=== PATIENT | female | born 1965 | race Caucasian/White ===

== ENCOUNTER 2024-12-11 08:22 | Inpatient (IN) | payer MEDICARE ==
--- NOTE | 2024-12-11 09:16 | ED ---
General Adult HPI - General Chief complaint: Chest Pain Stated complaint: nausea,chest pressure,headache Time Seen by Provider: 12/11/24 08:35 Source: patient, RN notes reviewed, old records reviewed Mode of arrival: ambulatory Limitations: no limitations - History of Present Illness Initial comments: This is a 59-year-old female who has a past medical history significant for high blood pressure mildly high cholesterol. Patient states a couple weeks ago she went to [place] and it was a 6-hour drive each way. Patient states ever since then she has had some chest discomfort that seems to worsen with exertion and difficulty breathing which seems to worsen with exertion. Patient states she is also noted increased swelling in her feet. Patient denies any fever chills or cough. Patient denies any calf pain. Patient states both legs are equally swollen. Patient denies any radiation of the chest pain - Related Data Allergies Allergy/AdvReac Type Severity Reaction Status Date / Time cefaclor [From Ceclor] Allergy Rash/Hives Verified 12/11/24 08:30 Review of Systems ROS Statement: Those systems with pertinent positive or pertinent negative responses have been documented in the HPI. ROS Other: All systems not noted in ROS Statement are negative. Past Medical History Past Medical History: Hypertension Additional Past Medical History / Comment(s): anxiety, depression History of Any Multi-Drug Resistant Organisms: None Reported Past Surgical History: Cholecystectomy Smoking Status: Never smoker Past Alcohol Use History: None Reported Past Drug Use History: None Reported General Exam - General Exam Comments Initial Comments: GENERAL: Patient is well-developed and well-nourished. Patient is nontoxic and well- hydrated and is in no acute distress. ENT: Neck is soft and supple. No significant lymphadenopathy is noted. Oropharynx is clear. Moist mucous membranes. Neck has full range of motion without eliciting any pain. EYES: The sclera were anicteric and conjunctiva were pink and moist. Extraocular movements were intact and pupils were equal round and reactive to light. Eyelids were unremarkable. PULMONARY: Unlabored respirations. Good breath sounds bilaterally. No audible rales rhonchi or wheezing was noted. CARDIOVASCULAR: There is a regular rate and rhythm without any murmurs gallops or rubs. ABDOMEN: Soft and nontender with normal bowel sounds. SKIN: Skin is clear with no lesions or rashes and otherwise unremarkable. NEUROLOGIC: Patient is alert and oriented x3. Cranial nerves II through XII are grossly intact. Motor and sensory are also intact. Normal speech, volume and content. Symmetrical smile. MUSCULOSKELETAL: Normal extremities with adequate strength and full range of motion. No lower extremity swelling or edema. No calf tenderness. LYMPHATICS: No significant lymphadenopathy is noted PSYCHIATRIC: Normal psychiatric evaluation. 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 EKG shows a sinus rhythm at 68 bpm MN interval is 155 QRS is 88 QT interval is 4 9 QTc is 427. EKG shows no ST segment elevation or depression Was pt. sent in by a medical professional or institution (, PA, EPIC INTERFACE ANALYST, urgent care, hospital, or group home...) When possible be specific @ -No Did you speak to anyone other than the patient for history (EMS, parent, family, police, friend...)? What history was obtained from this source @ -No Did you review nursing and triage notes (agree or disagree)? Why? @ -I reviewed and agree with nursing and triage notes Were old charts reviewed (outside hosp., previous admission, EMS record, old EKG, old radiological studies, urgent care reports/EKG's, group home records)? Report findings @ -No old charts were reviewed Differential Diagnosis? @ -Differential Chest Pain: Stable Angina, Unstable Angina, STEMI, NSTEMI Aortic Dissection, Pneumothorax, Musculoskeletal, Esophageal Spasm GERD, Cholecystitis, Pancreatitis, Zoster, this is not meant to be an all-inclusive list. EKG interpreted by me (3pts min.). @ -As above X-rays interpreted by me (1pt min.). @ -Chest x-ray shows no acute abnormality CT interpreted by me (1pt min.). @ -None done U/S interpreted by me (1pt. min.). @ -None done What testing was considered but not performed or refused? (CT, X-rays, U/S, labs)? Why? @ -None What meds were considered but not given or refused? Why? @ -None Did you discuss the management of the patient with other professionals (professionals i.e. , PA, EPIC INTERFACE ANALYST, lab, RT, psych nurse, social science instructor, java spring developer, teacher, second officer, casey saw operator)? Give summary @ -I spoke with [facility] hospitalist and they agreed to admit the patient admit the patient was admitting orders Was smoking cessation discussed for >3mins.? @ -No Was critical care preformed (if so, how long)? @ -No Were there social determinants of health that impacted care today? How? (Homelessness, low income, unemployed, alcoholism, drug addiction, transportation, low edu. Level, literacy, decrease access to med. care, senior living, rehab)? @ -No Was there de-escalation of care discussed even if they declined (Discuss DNR or withdrawal of care, Hospice)? DNR status @ -No What co-morbidities impacted this encounter? (DM, HTN, Smoking, COPD, CAD, Cancer, CVA, ARF, Chemo, Hep., AIDS, mental health diagnosis, sleep apnea, morbid obesity)? @ -None Was patient admitted / discharged? Hospital course, mention meds given and route, prescriptions, significant lab abnormalities, going to OR and other pertinent info. @ -Patient's chest pain was still ongoing but very mild patient received aspirin Nitropaste in the emergency department. [facility]. Patient's initial troponin was negative as well as the rest of her lab work Undiagnosed new problem with uncertain prognosis? @ -No Drug Therapy requiring intensive monitoring for toxicity (Heparin, Nitro, Insulin, Cardizem)? @ -No Were any procedures done? @ -No Diagnosis/symptom? @ -Chest pain Acute, or Chronic, or Acute on Chronic? @ -Acute Uncomplicated (without systemic symptoms) or Complicated (systemic symptoms)? @ -Complicated Side effects of treatment? @ -No Exacerbation, Progression, or Severe Exacerbation? @ -No Poses a threat to life or bodily function? How? (Chest pain, USA, IA, pneumonia, PE, COPD, DKA, ARF, appy, cholecystitis, CVA, Diverticulitis, Homicidal, Suicidal, threat to staff... and all critical care pts) @ -Yes this could lead to an IA and endorgan dysfunction - Lab Data Result diagrams: 12/11/24 09:30 12/11/24 09:30 Lab Results 12/11/24 12/11/24 12/11/24 Range/Units 09:30 09:30 09:30 WBC 10.3 (3.8-10.6) k/uL RBC 4.64 (3.80-5.40) m/uL Hgb 12.2 (11.4-16.0) gm/dL Hct 39.3 (34.0-46.0) % MCV 84.9 (80.0-100.0) fL MCH 26.3 (25.0-35.0) pg MCHC 31.0 (31.0-37.0) g/dL RDW 15.3 (11.5-15.5) % Plt Count 269 (150-450) k/uL MPV 8.7 Neutrophils % 72 % Lymphocytes % 19 % Monocytes % 5 % Eosinophils % 2 % Basophils % 1 % Neutrophils # 7.4 (1.3-7.7) k/uL Lymphocytes # 2.0 (1.0-4.8) k/uL Monocytes # 0.5 (0-1.0) k/uL Eosinophils # 0.2 (0-0.7) k/uL Basophils # 0.1 (0-0.2) k/uL PT 10.1 (10.0-12.5) sec INR 0.9 (<1.2) APTT 23.5 (22.0-30.0) sec D-Dimer (<0.60) mg/L FEU Sodium 137 (137-145) mmol/L Potassium 4.2 (3.5-5.1) mmol/L Chloride 103 (98-107) mmol/L Carbon Dioxide 27 (22-30) mmol/L Anion Gap 7 mmol/L BUN 11 (7-17) mg/dL Creatinine 0.70 (0.52-1.04) mg/dL Est GFR (CKD-EPI)AfAm >90 (>60 ml/min/1.73 sqM) Est GFR (CKD-EPI)NonAf >90 (>60 ml/min/1.73 sqM) Glucose 105 H (74-99) mg/dL Calcium 8.8 (8.4-10.2) mg/dL Magnesium 2.2 (1.6-2.3) mg/dL Total Bilirubin 0.5 (0.2-1.3) mg/dL AST 24 (14-36) U/L ALT 19 (4-34) U/L Alkaline Phosphatase 95 (38-126) U/L Troponin I (0.000-0.034) ng/mL Total Protein 7.5 (6.3-8.2) g/dL Albumin 4.4 (3.5-5.0) g/dL 12/11/24 12/11/24 Range/Units 09:30 09:30 WBC (3.8-10.6) k/uL RBC (3.80-5.40) m/uL Hgb (11.4-16.0) gm/dL Hct (34.0-46.0) % MCV (80.0-100.0) fL MCH (25.0-35.0) pg MCHC (31.0-37.0) g/dL RDW (11.5-15.5) % Plt Count (150-450) k/uL MPV Neutrophils % % Lymphocytes % % Monocytes % % Eosinophils % % Basophils % % Neutrophils # (1.3-7.7) k/uL Lymphocytes # (1.0-4.8) k/uL Monocytes # (0-1.0) k/uL Eosinophils # (0-0.7) k/uL Basophils # (0-0.2) k/uL PT (10.0-12.5) sec INR (<1.2) APTT (22.0-30.0) sec D-Dimer 0.36 (<0.60) mg/L FEU Sodium (137-145) mmol/L Potassium (3.5-5.1) mmol/L Chloride (98-107) mmol/L Carbon Dioxide (22-30) mmol/L Anion Gap mmol/L BUN (7-17) mg/dL Creatinine (0.52-1.04) mg/dL Est GFR (CKD-EPI)AfAm (>60 ml/min/1.73 sqM) Est GFR (CKD-EPI)NonAf (>60 ml/min/1.73 sqM) Glucose (74-99) mg/dL Calcium (8.4-10.2) mg/dL Magnesium (1.6-2.3) mg/dL Total Bilirubin (0.2-1.3) mg/dL AST (14-36) U/L ALT (4-34) U/L Alkaline Phosphatase (38-126) U/L Troponin I <0.012 (0.000-0.034) ng/mL Total Protein (6.3-8.2) g/dL Albumin (3.5-5.0) g/dL Disposition Clinical Impression: Chest pain Disposition: ADMITTED IP TO THIS HOSP Referrals: Vannesa Rocha DO [Primary Care Provider] - 1-2 days Time of Disposition: 11:51
[2024-12-11] MEDS: NITROGLYCERIN OINT 1 INCH/GM PACKET TOPICAL STA (09:31)
[2024-12-11] MEDS: ASPIRIN 81 MG PO STA (09:31)
[2024-12-11] MEDS: HEPARIN SOD,PORK IN 0.45% NACL 25,000 UNIT in 0.45% NACL 1 250ML.BAG IV SCH (09:40)
[2024-12-11] MEDS: HEPARIN SODIUM 1,000 UN/ML (10ML VL) IV ONE (09:40)
--- NOTE | 2024-12-11 09:51 | XR ---
EXAMINATION TYPE: XR chest 2V DATE OF EXAM: 12/11/2024 9:47 AM COMPARISON: None TECHNIQUE: XR chest 2V Frontal and lateral views of the chest. CLINICAL INDICATION:Female, 59 years old with history of Chest Pain; FINDINGS: Lungs/Pleura: There is no evidence of pleural effusion, focal consolidation, or pneumothorax. Pulmonary vascularity: Unremarkable. Heart/mediastinum: Cardiomediastinal silhouette is unremarkable. Musculoskeletal: No acute osseous pathology. IMPRESSION: No acute cardiopulmonary disease/process. [facility], , 12/11/2024 9:49 AM
[2024-12-11 09:59] LABS: INR 0.9 (<1.2); Partial Thromboplastin Time 23.5 sec (22.0-30.0); Prothrombin Time 10.1 sec (10.0-12.5)
[2024-12-11 10:01] LABS: ALT 19 U/L (4-34); AST 24 U/L (14-36); African American GFR (CKD) >90 (>60 ml/min/1.73 sqM); Albumin 4.4 g/dL (3.5-5.0); Alkaline Phosphatase 95 U/L (38-126); Anion Gap 7 mmol/L; Blood Urea Nitrogen 11 mg/dL (7-17); Calcium 8.8 mg/dL (8.4-10.2); Carbon Dioxide 27 mmol/L (22-30); Chloride 103 mmol/L (98-107); Glucose 105 mg/dL (74-99); Magnesium 2.2 mg/dL (1.6-2.3); Non-African American GFR(CKD) >90 (>60 ml/min/1.73 sqM); Potassium 4.2 mmol/L (3.5-5.1); Sodium 137 mmol/L (137-145); Total Bilirubin 0.5 mg/dL (0.2-1.3); Total Protein 7.5 g/dL (6.3-8.2)
[2024-12-11 10:37] LABS: Basophils # (A) 0.1 k/uL (0-0.2); Basophils % (A) 1 %; Eosinophils # (A) 0.2 k/uL (0-0.7); Eosinophils % (A) 2 %; HCT 39.3 % (34.0-46.0); HGB 12.2 gm/dL (11.4-16.0); Lymphocytes % (A) 19 %; MCH 26.3 pg (25.0-35.0); MCV 84.9 fL (80.0-100.0); Mean Platelet Volume 8.7; Monocytes # (A) 0.5 k/uL (0-1.0); Monocytes % (A) 5 %; Neutrophils # (A) 7.4 k/uL (1.3-7.7); Neutrophils % (A) 72 %; Platelet Count 269 k/uL (150-450); RBC 4.64 m/uL (3.80-5.40); RDW 15.3 % (11.5-15.5); WBC 10.3 k/uL (3.8-10.6)
[2024-12-11] MEDS ORDERED: NITROGLYCERIN SL TABS 0.4 MG TAB SUBLINGUAL PRN (11:51)
[2024-12-11] MEDS: NITROGLYCERIN OINT 1 INCH/GM PACKET TOPICAL SCH (12:19)
--- NOTE | 2024-12-11 16:32 | P.HPIM ---
History of Present Illness H&P Date: 12/11/24 History of present illness: 59-year-old female with no significant past medical history, reported history of depression anxiety who presented to ER with a complaint of chest discomfort for 1 week. Patient stated that she recently went to [place], it was a 6 to 7-hour drive each way, they took stop in between, since returning from [place] patient was having chest discomfort on and off and also shortness of breath worse with exertion. Patient stated that the pressure-like feeling was intermittent, was worse with exertion, improves with rest. Patient denied any fever, chills, sore throat, productive cough, lower extremity swelling, palpitations, nausea vomiting diarrhea constipation abdominal pain dysuria urgency frequency weakness or numbness of the extremities. Patient is afebrile, heart rate 76, respiratory rate 18, blood pressure 142/69, saturating 96% on room air. WBC 10.3, hemoglobin 12.2, platelet 269. INR 0.9 D-dimer 0.36. CMP was unremarkable. Troponin negative X2. Chest x-ray negative for acute process EKG showed sinus rhythm, no acute ST-T wave changes. TWI in V2. Assessment and plan: Chest pain: Presented with chest pressure for 1 week intermittent, improved with rest Troponin negative x 2's. Monitor with serial troponin EKG Aspirin Cardiology consult. As needed nitroglycerin. DVT prophylaxis Subcutaneous Lovenox Monitor vital signs and labs Labs and medication were reviewed. Continue same treatment. Further recommendations as per clinical course of the patient PHYSICAL EXAMINATION: GENERAL: The patient is A&O x3, NAD HEENT: EOMI, Sclerae anicteric, Moist Mucous membranes Neck: Supple, Non tender, No JVD PULMONARY: Equal breath souds B/L, No wheezing, No crackles. CARDIOVASCULAR: S1, S2 present. No murmurs, rubs, or gallops. ABDOMEN: Soft, nontender, nondistended, normoactive bowel sounds. No guarding or rebound tenderness. MUSCULOSKELETAL: No edema, No cyanosis. No clubbing. Normal ROM. Intact peripheral pulses. NEUROLOGICAL: CN 2-12 grossly intact. No FND REVIEW OF SYSTEMS: CONSTITUTIONAL: No fever, no malaise, no fatigue. HEENT: No recent visual problems or hearing problems. Denied any sore throat. CARDIOVASCULAR: Complains of chest discomfort, dizziness. PULMONARY: No shortness of breath, no cough, no hemoptysis. GASTROINTESTINAL: No diarrhea, no nausea, no vomiting, no abdominal pain. NEUROLOGICAL: No headaches, no weakness, no numbness. HEMATOLOGICAL: Denies any bleeding or petechiae. GENITOURINARY: Denies any burning micturition, frequency, or urgency. MUSCULOSKELETAL/RHEUMATOLOGICAL: Denies any joint pain, swelling, or any muscle pain. ENDOCRINE: Denies any polyuria or polydipsia. The rest of the 14-point review of systems is negative. Dictation was produced using [employer] software. please excuse any grammatical, word or spelling errors. Past Medical History Past Medical History: Hypertension Additional Past Medical History / Comment(s): anxiety, depression History of Any Multi-Drug Resistant Organisms: None Reported Past Surgical History: Cholecystectomy Smoking Status: Never smoker Past Alcohol Use History: None Reported Past Drug Use History: None Reported Medications and Allergies Home Medications Medication Instructions Recorded Confirmed Type Clonazepam Odt 0.5 mg PO TID PRN 12/11/24 12/11/24 History Metoprolol Succinate (ER) [Toprol 25 mg PO HS 12/11/24 12/11/24 History Xl] Sertraline [Zoloft] 150 mg PO HS 12/11/24 12/11/24 History clonazePAM [KlonoPIN ODT] 0.25 mg PO BID PRN 12/11/24 12/11/24 History Allergies Allergy/AdvReac Type Severity Reaction Status Date / Time cefaclor [From [facility]] Allergy Rash/Hives Verified 12/11/24 08:30 Physical Exam Vitals: Vital Signs Temp Pulse Pulse Resp BP Pulse Ox 12/11/24 10:55 71 18 136/66 98 12/11/24 09:17 65 65 18 158/76 97 12/11/24 08:25 98.0 F 76 18 142/69 96 Intake and Output 12/11/24 12/11/24 12/11/24 06:59 14:59 22:59 Other: # Voids 1 Weight 156.943 kg Results CBC & Chem 7: 12/11/24 09:30 12/11/24 09:30 Labs: Abnormal Lab Results - Last 24 Hours (Table) 12/11/24 Range/Units 09:30 Glucose 105 H (74-99) mg/dL
[2024-12-11] MEDS: ACETAMINOPHEN TAB 500 MG TAB PO PRN (17:20)
[2024-12-11] MEDS: ENOXAPARIN 40 MG/0.4 ML SYRINGE SQ SCH (17:50)
[2024-12-11] MEDS: SERTRALINE 50 MG TAB PO SCH (20:11)
[2024-12-11] MEDS: METOPROLOL SUCCINATE (ER) 25 MG TAB.ER.24H PO SCH (20:11)
[2024-12-11] MEDS: clonazePAM 0.5 MG TAB PO PRN (21:43)
[2024-12-12 09:55] LABS: Chol/HDL Ratio 3.61 Ratio; LDL Cholesterol,Calculated 141.2 mg/dL (0.0-131.0)
--- NOTE | 2024-12-12 12:49 | P.PN ---
Subjective Interval History: 59-year-old female with no significant past medical history, reported history of depression anxiety who presented to ER with a complaint of chest discomfort for 1 week. Patient stated that she recently went to [place], it was a 6 to 7-hour drive each way, they took stop in between, since returning from [place] patient was having chest discomfort on and off and also shortness of breath worse with exertion. Patient stated that the pressure-like feeling was intermittent, was worse with exertion, improves with rest. Patient denied any fever, chills, sore throat, productive cough, lower extremity swelling, palpitations, nausea vomiting diarrhea constipation abdominal pain dysuria urgency frequency weakness or numbness of the extremities. Patient is afebrile, heart rate 76, respiratory rate 18, blood pressure 142/69, saturating 96% on room air. WBC 10.3, hemoglobin 12.2, platelet 269. INR 0.9 D-dimer 0.36. CMP was unremarkable. Troponin negative X2. Chest x-ray negative for acute process EKG showed sinus rhythm, no acute ST-T wave changes. TWI in V2. 12/12--- patient was seen and examined today. Patient continued complain of chest pressure with exertion relieved with rest. Troponin remained negative. Will continue monitor, continue aspirin, statin, as needed sublingual nitroglycerin. Vital stable. Troponin remained negative x 3. LDL 141. HbA1c 6.0. Assessment and plan: Chest pain: Presented with chest pressure for 1 week intermittent, improved with rest Troponin negative x 2's. Monitor with serial troponin EKG Aspirin As needed nitroglycerin. Cardiology consulted Prediabetes: HbA1c 6.0 Recommend dietary modifications and exercise. PCP to follow. DVT prophylaxis Subcutaneous Lovenox Monitor vital signs and labs Labs and medication were reviewed. Continue same treatment. Further recommendations as per clinical course of the patient PHYSICAL EXAMINATION: GENERAL: The patient is A&O x3, NAD HEENT: EOMI, Sclerae anicteric, Moist Mucous membranes Neck: Supple, Non tender, No JVD PULMONARY: Equal breath souds B/L, No wheezing, No crackles. CARDIOVASCULAR: S1, S2 present. No murmurs, rubs, or gallops. ABDOMEN: Soft, nontender, nondistended, normoactive bowel sounds. No guarding or rebound tenderness. MUSCULOSKELETAL: No edema, No cyanosis. No clubbing. Normal ROM. Intact peripheral pulses. NEUROLOGICAL: CN 2-12 grossly intact. No FND Skin: No Rash REVIEW OF SYSTEMS: CONSTITUTIONAL: No fever or chills. CARDIOVASCULAR: No chest pain, palpitations or syncope. PULMONARY: No shortness of breath, no cough, sore throat. GASTROINTESTINAL: No nausea, vomiting, diarrhea, abdominal pain. : No Dysuria, urgency, frequency. Extremities: No edema. NEUROLOGICAL: No headaches, no weakness, or numbness Dictation was produced using [employer] dictation software. please excuse any grammatical, word or spelling errors. Objective - Vital Signs Vital signs: Vital Signs Temp 98.3 F 12/12/24 07:00 Pulse 76 12/12/24 07:00 Resp 16 12/12/24 07:00 BP 151/77 12/12/24 07:00 Pulse Ox 96 12/12/24 07:00 FiO2 Intake & Output 12/11/24 12/12/24 12/12/24 18:59 06:59 18:59 Intake Total 222 Balance 222 Weight 156.943 kg Intake: Oral 222 Other: Voiding Method Toilet Toilet # Voids 1 4 # Bowel Movements 1 - Labs CBC & Chem 7: 12/11/24 09:30 12/11/24 09:30 Labs: Abnormal Lab Results - Last 24 Hours (Table) 12/11/24 Range/Units 09:30 Cholesterol 226.00 H (0.00-200.00) mg/dL LDL Cholesterol, Calc 141.2 H (0.0-131.0) mg/dL HDL Cholesterol 62.60 H (40.00-60.00) mg/dL
[2024-12-12] MEDS: ASPIRIN 325 MG TAB PO SCH (14:30)
[2024-12-12] MEDS ORDERED: NITROGLYCERIN SL TABS 0.4 MG TAB SUBLINGUAL PRN (16:39)
[2024-12-12] MEDS ORDERED: ALPRAZolam 0.5 MG TAB PO PRN (16:39)
--- NOTE | 2024-12-12 16:43 | P.CRDCN ---
History of Present Illness Consult date: 12/12/24 Consult reason: chest pain Chief complaint: Chest pain History of present illness: History of present illness: Patient is a pleasant 59-year-old female with significant past medical history of hypertension, hyperlipidemia, depression/anxiety, obesity who presented to the emergency department with complaints of chest pain. 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 She has recently moved to the area. She had been tra veling in [place] November 22 and has not been feeling well since then. She has been having chest tightness and feet swelling. She will feel chest pressure that is worse with movement and then improves with rest. She is having more shortness of breath with exertion and dizziness. Denies any syncope. Yesterday she woke up with heavy pressure on her chest and felt nauseous. Her blood press ure was elevated 180/95. She does report family history of father having [place] in his 70s and mother having [place] in her 80s. Labs reviewed: Troponin negative x 3, D-dimer normal. EKG shows sinus rhythm with Q waves. Chest x-ray with no acute findings. She is not a smoker. She did have a prior CTA coronary arteries 11/2022 which showed LAD 50-70% stenosis and RCA 25% stenosis. She was advised to start a statin for cholesterol management however she does not want to take any statins and is open to other alternative medications. She also saw a new PCP recently and was given a prescription for lisinopril 5 mg but has not started this yet. Lipid panel reviewed: Total cholesterol 226, LDL 141, HDL 62, A1c 6.0. REVIEW OF SYSTEMS: No fever or chills. No cough or expectoration. No diaphoresis. Patient denies headache, dizziness, blurred vision, double vision. Patient denies any stomach discomfort. No nausea, vomiting. No hematochezia. No hematemesis. Denies any black stools or blood in his stools. Denies dysuria or hematuria. No muscle weakness or numbness. Reports chest pain or pressure. PHYSICAL EXAMINATION: This is a 59-year-old female in no apparent distress at the time of my examination. HEENT: Head is atraumatic, normocephalic. Pupils are equal, round. Sclerae anicteric. Conjunctivae are clear. Mucous membranes of the mouth are moist. Neck is supple. There is no jugular venous distention. No carotid bruit is heard. CHEST EXAMINATION: Lungs are clear to auscultation. No chest wall tenderness is noted on palpation or with deep breathing. HEART EXAMINATION: Heart regular rate and rhythm. S1, S2 heard. No murmurs, gallops or rub. ABDOMEN: Soft, nontender. Bowel sounds are heard. EXTREMITIES: 2+ peripheral pulses with no evidence of peripheral edema and no calf tenderness noted. NEUROLOGIC EXAMINATION: Patient is awake, alert and oriented x3. IMPRESSION AND PLAN: Hypertension Chest pain, typical Hyperlipidemia Moderate CAD as noted on CTA coronary arteries 11/2022 PLAN: Check echocardiogram to evaluate heart function and structure. We discussed option for stress test versus left heart catheterization. Patient would like to proceed with left heart catheterization for definitive answer and possible intervention. We discussed that she would likely need cholesterol management and ideally attempt a statin, she will think about this. NPO after light breakfast tomorrow. Continue to monitor blood pressure. Further recommendations post testing. I am dictating on behalf of Dr. Davonte Ott's history/physical and assessment/plan. Past Medical History Past Medical History: Osteoarthritis (OA) Additional Past Medical History / Comment(s): anxiety, depression, gel shots in knee (OA) History of Any Multi-Drug Resistant Organisms: None Reported Past Surgical History: Cholecystectomy Smoking Status: Never smoker Past Alcohol Use History: None Reported Past Drug Use History: None Reported Medications and Allergies Home Medications Medication Instructions Recorded Confirmed Type Clonazepam Odt 0.5 mg PO TID PRN 12/11/24 12/11/24 History Metoprolol Succinate (ER) [Toprol 25 mg PO HS 12/11/24 12/11/24 History Xl] Sertraline [Zoloft] 150 mg PO HS 12/11/24 12/11/24 History clonazePAM [KlonoPIN ODT] 0.25 mg PO BID PRN 12/11/24 12/11/24 History Allergies Allergy/AdvReac Type Severity Reaction Status Date / Time cefaclor [From [facility]] Allergy Rash/Hives Verified 12/11/24 08:30 Physical Exam Vitals: Vital Signs Temp Pulse Pulse Pulse Resp BP BP 12/12/24 07:00 98.3 F 76 16 151/77 12/12/24 01:53 98 F 67 20 144/71 12/11/24 18:45 98.1 F 67 18 138/74 12/11/24 17:05 98.0 F 71 16 158/78 12/11/24 10:55 71 18 136/66 Pulse Ox 12/12/24 07:00 96 12/12/24 01:53 96 12/11/24 18:45 97 12/11/24 17:05 98 12/11/24 10:55 98 Intake and Output 12/11/24 12/12/24 12/12/24 22:59 06:59 14:59 Intake Total 222 Balance 222 Intake: Oral 222 Other: Voiding Method Toilet Toilet Toilet # Voids 1 4 # Bowel Movements 1 Weight 156.943 kg Results 12/11/24 09:30 12/11/24 09:30 Cardiac Enzymes 12/11/24 12/11/24 12/11/24 Range/Units 09:30 09:30 12:09 AST 24 (14-36) U/L Troponin I <0.012 <0.012 (0.000-0.034) ng/mL 12/11/24 Range/Units 15:58 AST (14-36) U/L Troponin I <0.012 (0.000-0.034) ng/mL Coagulation 12/11/24 Range/Units 09:30 PT 10.1 (10.0-12.5) sec APTT 23.5 (22.0-30.0) sec CBC 12/11/24 Range/Units 09:30 WBC 10.3 (3.8-10.6) k/uL RBC 4.64 (3.80-5.40) m/uL Hgb 12.2 (11.4-16.0) gm/dL Hct 39.3 (34.0-46.0) % Plt Count 269 (150-450) k/uL Comprehensive Metabolic Panel 12/11/24 Range/Units 09:30 Sodium 137 (137-145) mmol/L Potassium 4.2 (3.5-5.1) mmol/L Chloride 103 (98-107) mmol/L Carbon Dioxide 27 (22-30) mmol/L BUN 11 (7-17) mg/dL Creatinine 0.70 (0.52-1.04) mg/dL Glucose 105 H (74-99) mg/dL Calcium 8.8 (8.4-10.2) mg/dL AST 24 (14-36) U/L ALT 19 (4-34) U/L Alkaline Phosphatase 95 (38-126) U/L Total Protein 7.5 (6.3-8.2) g/dL Albumin 4.4 (3.5-5.0) g/dL Current Medications Generic Name Dose Route Start Last Admin Trade Name Freq PRN Reason Stop Dose Admin Acetaminophen 500 mg 12/11/24 16:55 12/11/24 17:20 Acetaminophen Tab 500 Mg Tab PO 500 mg Q6HR PRN Administration Fever and/ or Pain Aspirin 325 mg 12/12/24 09:00 Aspirin 325 Mg Tab PO DAILY [facility]RETT Clonazepam 0.5 mg 12/11/24 17:52 12/11/24 21:43 Clonazepam 0.5 Mg Tab PO 0.5 mg TID PRN Administration Anxiety Enoxaparin Sodium 40 mg 12/11/24 16:45 12/12/24 09:03 Enoxaparin 40 Mg/0.4 Ml Syringe SQ Not Given DAILY [facility] Metoprolol Succinate 25 mg 12/11/24 21:00 12/11/24 20:11 Metoprolol Succinate (Er) 25 Mg Tab.Er.24h PO 25 mg HS BARRETT Administration Nitroglycerin 0.4 mg 12/11/24 11:51 Nitroglycerin Sl Tabs 0.4 Mg Tab SUBLINGUAL Q5M PRN Chest Pain Nitroglycerin 1 inch 12/11/24 13:00 12/12/24 05:08 Nitroglycerin Oint 1 Inch/Gm Packet TOPICAL Not Given Q6HR BARRETT Sertraline HCl 150 mg 12/11/24 21:00 12/11/24 20:11 Sertraline 50 Mg Tab PO 150 mg HS BARRETT Administration Intake and Output 12/11/24 12/12/24 12/12/24 22:59 06:59 14:59 Intake Total 222 Balance 222 Intake: Oral 222 Other: Voiding Method Toilet Toilet Toilet # Voids 1 4 # Bowel Movements 1 Weight 156.943 kg 12/11/24 09:30 12/11/24 09:30
[2024-12-13] MEDS: ALPRAZolam 0.25 MG TAB PO PRN (02:56)
[2024-12-13] MEDS: ATORVASTATIN 80 MG TAB PO ONE (06:05)
[2024-12-13] MEDS ORDERED: HEPARIN SODIUM,PORCINE (1 ML) 2,500 UNIT in SODIUM CHLORIDE 0.9% 250 ML IRRIGATION PRN (07:00)
[2024-12-13] MEDS ORDERED: HEPARIN SODIUM,PORCINE 10,000 UNIT in SODIUM CHLORIDE 0.9% 1,000 ML IRRIGATION PRN (07:00)
--- NOTE | 2024-12-13 10:04 | CA ---
Transthoracic Echo Report Name: Jaz Murphy Age: 59 Gender: F : 1965 Exam Date: 12/13/2024 09:08 Exam Location: [facility] Ht (in): 62 Wt (lb): 346 Ordering Physician: Regina Houston Attending/Referring Phys: Excavation Laborer Jessy Galo RDCS Procedure CPT: Indications: Chest Pain Cardiac Hx: Technical Quality: Fair Contrast 1: Total Dose (mL): Contrast 2: Total Dose (mL): MEASUREMENTS (Male / Female) Normal Values 2D ECHO LV Diastolic Diameter PLAX 4.9 cm 4.2 - 5.9 / 3.9 - 5.3 cm LV Systolic Diameter PLAX 3.4 cm IVS Diastolic Thickness 1.2 cm 0.6 - 1.0 / 0.6 - 0.9 cm LVPW Diastolic Thickness 1.2 cm 0.6 - 1.0 / 0.6 - 0.9 cm LV Relative Wall Thickness 0.5 RV Internal Dim ED PLAX 2.2 cm LA Systolic Diameter LX 3.9 cm 3.0 - 4.0 / 2.7 - 3.8 cm LV Diastolic Volume MOD BP 86.5 cm??? 67 - 155 / 56 - 104 cm??? LV Systolic Volume MOD BP 32.2 cm??? 22 - 58 / 19 - 49 cm??? LV Ejection Fraction MOD BP 62.8 % >= 55 % LV Cardiac Index MOD BP 1448.8 cm???/min???m??? LV Diastolic Volume MOD 4C 97.3 cm??? LV Systolic Volume MOD 4C 28.5 cm??? LV Ejection Fraction MOD 4C 70.7 % LV Cardiac Index MOD 4C 1837.6 cm???/min???m??? LV Diastolic Length 4C 7.0 cm LV Systolic Length 4C 5.5 cm LV Diastolic Volume MOD 2C 75.6 cm??? LV Systolic Volume MOD 2C 34.5 cm??? LV Ejection Fraction MOD 2C 54.3 % LV Cardiac Index MOD 2C 1095.5 cm???/min???m??? LV Diastolic Length 2C 6.8 cm LV Systolic Length 2C 5.9 cm M-MODE Aortic Root Diameter MM 3.3 cm LA Systolic Diameter MM 4.3 cm LA Ao Ratio MM 1.3 AV Cusp Separation MM 2.0 cm DOPPLER Mitral E Point Velocity 124.9 cm/s Mitral A Point Velocity 101.4 cm/s Mitral E to A Ratio 1.2 MV Deceleration Time 219.8 ms MV E' Velocity 7.1 cm/s Mitral E to MV E' Ratio 17.5 TR Peak Velocity 256.3 cm/s TR Peak Gradient 26.3 mmHg Right Ventricular Systolic Press 31.3 mmHg FINDINGS Left Ventricle Left ventricular ejection fraction is estimated at 55-60 %.Normal left ventricular systolic function with no obvious regional wall motion abnormalities. Left ventricular cavity size normal. Mildly increased left ventricular wall thickness. Right Ventricle Normal right ventricular size and function. Right ventricular systolic pressure within normal limits. Right Atrium Mild right atrial dilatation. Left Atrium Moderate left atrial dilatation. Mitral Valve Structurally normal mitral valve. Mild mitral regurgitation. No mitral stenosis. Aortic Valve Trileaflet aortic valve. No aortic valve stenosis or regurgitation. Tricuspid Valve Structurally normal tricuspid valve. Mild tricuspid regurgitation. No tricuspid stenosis. Pulmonic Valve Structurally normal pulmonic valve. No pulmonic stenosis. Pericardium No pericardial or pleural effusion. Aorta Normal size aortic root and proximal ascending aorta. CONCLUSIONS 1. Normal left ventricular size and systolic function 2. Mild mitral and tricuspid regurgitation Previewed by: Dr. Naldo Saini MD (Electronically Signed) Final Date: 13 December 2024 10:03
--- NOTE | 2024-12-13 10:12 | P.PN ---
Subjective Progress Note Date: 12/13/24 Consult reason: chest pain Chief complaint: Chest pain History of present illness: History of present illness: Patient is a pleasant 59-year-old female with significant past medical history of hypertension, hyperlipidemia, depression/anxiety, obesity who presented to the emergency department with complaints of chest pain. 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 She has recently moved to the area. She had been traveling in [place] November 22- and has not been feeling well since then. She has been having chest tightness and feet swelling. She will feel chest pressure that is worse with movement and then improves with rest. She is having more shortness of breath with exertion and dizziness. Denies any syncope. Yesterday she woke up with heavy pressure on her chest and felt nauseous. Her blood pressure was elevated 180/95. She does report family history of father having [place] in his 70s and mother having [place] in her 80s. Labs reviewed: Troponin negative x 3, D-dimer normal. EKG shows sinus rhythm with Q waves. Chest x-ray with no acute findings. She is not a smoker. She did have a prior CTA coronary arteries 11/2022 which showed LAD 50-70% stenosis and RCA 25% stenosis. She was advised to start a statin for cholesterol management however she does not want to take any statins and is open to other alternative medications. She also saw a new PCP recently and was given a prescription for lisinopril 5 mg but has not started this yet. Lipid panel reviewed: Total cholesterol 226, LDL 141, HDL 62, A1c 6.0. 12/13 Patient seen and examined. Patient is scheduled for cardiac catheterization this afternoon with Dr. Ott. Patient denies having chest pain, chest pressure. No shortness of breath. Blood pressure 142/81, heart rate 72, pulse ox 94% on room air. Echocardiogram reveals EF of 55 to 60%, mild mitral and tricuspid regurgitation. PHYSICAL EXAMINATION: This is a 59-year-old female in no apparent distress at the time of my examination. HEENT: Head is atraumatic, normocephalic. Pupils are equal, round. Sclerae anicteric. Conjunctivae are clear. Neck is supple. There is no jugular venous distention. No carotid bruit is heard. CHEST EXAMINATION: Lungs are clear to auscultation. No chest wall tenderness is noted on palpation or with deep breathing. HEART EXAMINATION: Heart regular rate and rhythm. S1, S2 heard. No murmurs, gallops or rub. ABDOMEN: Soft, nontender. Bowel sounds are heard. EXTREMITIES: 2+ peripheral pulses with no evidence of peripheral edema and no calf tenderness noted. NEUROLOGIC EXAMINATION: Patient is awake, alert and oriented x3. IMPRESSION AND PLAN: Hypertension Chest pain, typical Hyperlipidemia Moderate CAD as noted on CTA coronary arteries 11/2022 PLAN: Continue current cardiac medications Patient is scheduled for left heart catheterization today with Dr. Ott Need for statin for cholesterol management was discussed with the patient by Dr. Ott and patient will think about it. Further recommendations as patient progresses. Nurse practitioner note has been reviewed, I agree with documented findings and plan of care. Patient was seen and examined. Objective - Vital Signs Vital signs: Vital Signs Temp 97.9 F 12/13/24 01:17 Pulse 71 12/13/24 01:17 Resp 20 12/13/24 01:17 BP 133/72 12/13/24 01:17 Pulse Ox 96 12/13/24 01:17 FiO2 Intake & Output 12/12/24 12/13/24 12/13/24 18:59 06:59 18:59 Intake Total 118 222 Balance 118 222 Intake: Oral 118 222 Other: Voiding Method Toilet Toilet # Voids 4 3 # Bowel Movements 1 - Labs CBC & Chem 7: 12/11/24 09:30 12/11/24 09:30 Labs: Abnormal Lab Results - Last 24 Hours (Table) 12/11/24 Range/Units 09:30 Cholesterol 226.00 H (0.00-200.00) mg/dL LDL Cholesterol, Calc 141.2 H (0.0-131.0) mg/dL HDL Cholesterol 62.60 H (40.00-60.00) mg/dL
[2024-12-13 12:40] LABS: Glucose,Whole Blood 95 mg/dL (70-110)
--- NOTE | 2024-12-13 13:35 | P.PN ---
Subjective Interval History: 59-year-old female with no significant past medical history, reported history of depression anxiety who presented to ER with a complaint of chest discomfort for 1 week. Patient stated that she recently went to [place], it was a 6 to 7-hour drive each way, they took stop in between, since returning from [place] patient was having chest discomfort on and off and also shortness of breath worse with exertion. Patient stated that the pressure-like feeling was intermittent, was worse with exertion, improves with rest. Patient denied any fever, chills, sore throat, productive cough, lower extremity swelling, palpitations, nausea vomiting diarrhea constipation abdominal pain dysuria urgency frequency weakness or numbness of the extremities. Patient is afebrile, heart rate 76, respiratory rate 18, blood pressure 142/69, saturating 96% on room air. WBC 10.3, hemoglobin 12.2, platelet 269. INR 0.9 D-dimer 0.36. CMP was unremarkable. Troponin negative X2. Chest x-ray negative for acute process EKG showed sinus rhythm, no acute ST-T wave changes. TWI in V2. 12/12--- patient was seen and examined today. Patient continued complain of chest pressure with exertion relieved with rest. Troponin remained negative. Will continue monitor, continue aspirin, statin, as needed sublingual nitroglycerin. Vital stable. Troponin remained negative x 3. LDL 141. HbA1c 6.0. 12/13--patient was seen and examined today. Vital stable. Patient continues complain of chest pressure and shortness of breath with exertion. Cardiology following, plan for cardiac catheterization today. Assessment and plan: Chest pain: Presented with chest pressure for 1 week intermittent, improved with rest Troponin negative x 2's. Monitor with serial troponin EKG Aspirin As needed nitroglycerin. Cardiology consulted--plan for cardiac catheterization today Prediabetes: HbA1c 6.0 Recommend dietary modifications and exercise. PCP to follow. DVT prophylaxis Subcutaneous Lovenox Monitor vital signs and labs Labs and medication were reviewed. Continue same treatment. Further recommendations as per clinical course of the patient PHYSICAL EXAMINATION: GENERAL: The patient is A&O x3, NAD HEENT: EOMI, Sclerae anicteric, Moist Mucous membranes Neck: Supple, Non tender, No JVD PULMONARY: Equal breath souds B/L, No wheezing, No crackles. CARDIOVASCULAR: S1, S2 present. No murmurs, rubs, or gallops. ABDOMEN: Soft, nontender, nondistended, normoactive bowel sounds. No guarding or rebound tenderness. MUSCULOSKELETAL: No edema, No cyanosis. No clubbing. Normal ROM. Intact perip heral pulses. NEUROLOGICAL: CN 2-12 grossly intact. No FND Skin: No Rash REVIEW OF SYSTEMS: CONSTITUTIONAL: No fever or chills. CARDIOVASCULAR: No chest pain, palpitations or syncope. PULMONARY: No shortness of breath, no cough, sore throat. GASTROINTESTINAL: No nausea, vomiting, diarrhea, abdominal pain. : No Dysuria, urgency, frequency. Extremities: No edema. NEUROLOGICAL: No headaches, no weakness, or numbness Dictation was produced using [employer] dictation software. please excuse any grammatical, word or spelling errors. Objective - Vital Signs Vital signs: Vital Signs Temp 98.1 F 12/13/24 07:15 Pulse 72 12/13/24 07:15 Resp 16 12/13/24 07:15 BP 142/81 12/13/24 07:15 Pulse Ox 94 L 12/13/24 07:15 FiO2 Intake & Output 12/12/24 12/13/24 12/13/24 18:59 06:59 18:59 Intake Total 118 222 Balance 118 222 Intake: Oral 118 222 Other: Voiding Method Toilet Toilet # Voids 4 3 # Bowel Movements 1 - Labs CBC & Chem 7: 12/11/24 09:30 12/11/24 09:30
[2024-12-13] MEDS: MIDAZOLAM 2 MG/2 ML VIAL IVP ONE ×3 (14:16→14:22)
[2024-12-13] MEDS: fentaNYL (PF) 50 MCG/ML 2 ML AMP IVP ONE ×3 (14:16→14:22)
[2024-12-13] MEDS: HEPARIN SODIUM 1,000 UN/ML (10ML VL) IVP ONE (14:20)
[2024-12-13] MEDS: IV FLUID CONTINUATION 600 ML IV ONE (14:28)
[2024-12-13] MEDS: IOPAMIDOL-370 100ML BTL INJ ONE (14:30)
--- NOTE | 2024-12-13 14:43 | P.CARDCATH ---
Description of Procedure: PROCEDURES PERFORMED: Left heart catheterization, bilateral coronary angiography, ultrasound guided arterial access INDICATION: Chest pain concerning for unstable angina CONSENT:I have discussed the risks, benefits and alternative therapies for the above-mentioned procedure and for both sedation/analgesia as well as necessary blood product administration, if indicated, as they pertain to this patient. The patient has indicated understanding and acceptance of the risks and procedures discussed. PROCEDURE: After the risks, benefits and alternatives of the above mentioned procedure explained in detail with the patient, informed consent was obtained. Patient was taken to the catheterization lab and prepped and draped in usual fashion. Ultrasound guidance was used to assess for arterial access. 1% lidocaine was used to anesthetize the right radial artery. A 6-English sheath was placed in the right radial artery using modified Seldinger technique and ultrasound guidance. Left coronary angiography was performed with a 5-English JL 3.5 catheter and right coronary angiography was performed with a 5-English FR5 catheter in various views. A 5-English FR5 catheter was inserted into the left ventricle and pressure measurements were obtained. The right radial sheath was removed and a TR band was placed with hemostasis achieved. The patient tolerated the procedure well. Patient was transported back to the post catheterization holding area in stable condition. Conscious Sedation: Patient was monitored under the direct supervision of myself for conscious sedation using Versed and fentanyl for a total duration of 11 minutes HEMODYNAMICS: Aortic: 128/72 LV: 121/10, LVEDP 18 SELECTIVE CORONARY ARTERIOGRAPHY: LEFT MAIN: The left main is a large caliber vessel which bifurcates into the LAD and circumflex. There is no significant stenosis. LEFT ANTERIOR DESCENDING CORONARY ARTERY: LAD is a large caliber vessel which wraps around to the apex. There are mild 10 to 20% mid LAD stenosis and otherwise normal. LEFT CIRCUMFLEX CORONARY ARTERY: Left circumflex is a moderate caliber vessel without significant stenosis. RIGHT CORONARY ARTERY: The right coronary artery is a large caliber vessel which gives off a PDA and PLV branch and is the dominant vessel. There is no significant stenosis. FINAL IMPRESSION: 1. Relatively normal coronary arteries as described above other than a mid LAD 10-20% stenosis. 2. Mildly elevated left sided filling pressures PLAN: 1. Aggressive risk factor modification per most recent ACC/AHA guidelines. 2. Follow-up in the office in 1-2 weeks.
[2024-12-13] MEDS: ATORVASTATIN 40 MG TAB PO SCH (21:12)
[2024-12-13] MEDS: PSEUDOEPHEDRINE 30 MG TAB PO PRN (21:35)
[2024-12-14 03:03] VITALS: TEMP 98.4
[2024-12-14 08:43] LABS: Basophils # (A) 0.13 X 10*3/uL (0.00-0.10); Basophils % (A) 1.1 %; Eosinophils # (A) 0.24 X 10*3/uL (0.04-0.35); Eosinophils % (A) 2.1 %; HCT 36.3 % (37.2-46.3); HGB 11.4 g/dL (12.0-15.0); Lymphocytes # (A) 2.34 X 10*3/uL (0.90-5.00); Lymphocytes % (A) 20.5 %; MCH 26.8 pg (27.0-32.0); MCHC 31.4 g/dL (32.0-37.0); MCV 85.2 FL (80.0-97.0); Mean Platelet Volume 11.4 FL (9.5-12.2); Monocytes # (A) 0.86 X 10*3/uL (0.20-1.00); Monocytes % (A) 7.6 %; NRBC Per 100 WBC 0 X 10*3/uL (0.00-0.01); Neutrophils # (A) 7.75 X 10*3/uL (1.80-7.70); Neutrophils % (A) 68.1 %; Platelet Count 279 X 10*3/uL (140-440); RBC 4.26 X 10*6/uL (4.10-5.20); RDW 15.1 % (11.5-14.5); WBC 11.39 X 10*3/uL (4.50-10.00)
[2024-12-14 08:48] LABS: BUN/Creat Ratio 20.71 Ratio (12.00-20.00); Blood Urea Nitrogen 14.5 mg/dL (9.0-27.0); Chloride 102 mmol/L (96-109); Glucose 110 mg/dL (70-110); Potassium 4.3 mmol/L (3.5-5.5); Sodium 139 mmol/L (135-145)
[2024-12-14 08:49] LABS: Calcium 8.6 mg/dL (8.7-10.3); Carbon Dioxide 26.1 mmol/L (21.6-31.8)
[2024-12-14 09:26] VITALS: BP 155/79; PULSE 64; RESP 18
--- NOTE | 2024-12-14 10:09 | P.PN ---
Subjective Progress Note Date: 12/14/24 Consult reason: chest pain Chief complaint: Chest pain History of present illness: History of present illness: Patient is a pleasant 59-year-old female with significant past medical history of hypertension, hyperlipidemia, depression/anxiety, obesity who presented to the emergency department with complaints of chest pain. She does not follow with a copy manager. She has recently moved to the area. She had been traveling in [place] November 22- and has not been feeling well since then. She has been having chest tightness and feet swelling. She will feel chest pressure that is worse with movement and then improves with rest. She is having more shortness of breath with exertion and dizziness. Denies any syncope. Yesterday she woke up with heavy pressure on her chest and felt nauseous. Her blood pressure was elevated 180/95. She does report family history of father having OH in his 70s and mother having OH in her 80s. Labs reviewed: Troponin negative x 3, D-dimer normal. EKG shows sinus rhythm with Q waves. Chest x-ray with no acute findings. She is not a smoker. She did have a prior CTA coronary arteries 11/2022 which showed LAD 50-70% stenosis and RCA 25% stenosis. She was advised to start a statin for cholesterol management however she does not want to take any statins and is open to other alternative medications. She also saw a new PCP recently and was given a prescription for lisinopril 5 mg but has not started this yet. Lipid panel reviewed: Total cholesterol 226, LDL 141, HDL 62, A1c 6.0. 3 Patient seen and examined. Patient is scheduled for cardiac catheterization this afternoon with Dr. Ott. Patient denies having chest pain, chest pressure. No shortness of breath. Blood pressure 142/81, heart rate 72, pulse ox 94% on room air. Echocardiogram reveals EF of 55 to 60%, mild mitral and tricuspid regurgitation. 12/14 Patient seen and examined. Yesterday, patient underwent cardiac catheterization with Dr. Ott which revealed relatively normal coronary arteries with mid LAD 10 to 20% stenosis. Mildly elevated left-sided filling pressures. Plan for aggressive risk factor modification and follow-up in the office in 1 to 2 weeks. This morning, patient states that she has some shortness of breath when she moves and also some chest pressure. Wrist shows no sign of hematoma or active bleeding. Blood pressure 155/79, heart rate 64, pulse ox 93% on room air. Repeat blood work reveals hemoglobin 11.4, WBC 11.3, BUN 14 creatinine 0.7. PHYSICAL EXAMINATION: This is a 59-year-old female in no apparent distress at the time of my examination. HEENT: Head is atraumatic, normocephalic. Pupils are equal, round. Sclerae anicteric. Conjunctivae are clear. Neck is supple. There is no jugular venous distention. No carotid bruit is heard. CHEST EXAMINATION: Lungs are clear to auscultation. No chest wall tenderness is noted on palpation or with deep breathing. HEART EXAMINATION: Heart regular rate and rhythm. S1, S2 heard. No murmurs, gallops or rub. ABDOMEN: Soft, nontender. Bowel sounds are heard. EXTREMITIES: 2+ peripheral pulses with no evidence of peripheral edema and no calf tenderness noted. NEUROLOGIC EXAMINATION: Patient is awake, alert and oriented x3. IMPRESSION AND PLAN: Hypertension Chest pain, acute coronary syndrome ruled out with negative cardiac catheterization Hyperlipidemia Moderate CAD as noted on CTA coronary arteries 11/2022 PLAN: Continue current cardiac medications Need for statin for cholesterol management was discussed with the patient by Dr. Ott and patient will think about it. Patient is cleared for discharge from cardiology perspective. Follow-up with Dr. Ott in 1 to 2 weeks. Nurse practitioner note has been reviewed, I agree with documented findings and plan of care. Patient was seen and examined. Objective - Vital Signs Vital signs: Vital Signs Temp 98.4 F 12/14/24 00:18 Pulse 70 12/14/24 00:18 Resp 17 12/14/24 00:18 BP 143/71 12/14/24 00:18 Pulse Ox 97 12/14/24 00:18 FiO2 Intake & Output 12/13/24 12/14/24 12/14/24 18:59 06:59 18:59 Intake Total 100 Balance 100 Intake: IV 100 Other: Voiding Method Toilet # Voids 3 1 - Labs CBC & Chem 7: 12/14/24 05:25 12/14/24 05:25
--- NOTE | 2024-12-14 12:42 | CT ---
EXAMINATION TYPE: CT chest angio for PE CT DLP: 790.9 mGycm, Automated exposure control for dose reduction was used. DATE OF EXAM: 12/14/2024 12:26 PM COMPARISON: Chest radiograph from same day. CLINICAL INDICATION:Female, 59 years old with history of SOB, chest pain; SOB TECHNIQUE/CONTRAST: CTA scan of the thorax is performed with IV Contrast, patient injected with 68cc mL of Isovue 370, pu lmonary embolism protocol. MIP images are created and reviewed. FINDINGS: Pulmonary Artery: There is no evidence for a filling defect within the pulmonary vasculature to sugge st acute pulmonary embolism. The pulmonary artery is of normal size. Lungs/Pleura: No evidence of focal consolidation, pleural effusion or pneumothorax. No suspicious pul monary nodule or mass. Airway: Large airways are patent. Heart: Cardiomegaly is demonstrated.No pericardial effusion No significant coronary artery calcificat ions. Vasculature: No evidence of aortic aneurysm. Mediastinum: No gross evidence of adenopathy. Musculoskeletal: No acute osseous abnormalities. Right AC joint arthropathy. Mild multilevel degenera tive disc disease. Soft Tissues: Unremarkable. Lower neck: Macrocalcification within the right thyroid lobe.. Upper Abdomen: Diffuse low-attenuation to the liver parenchyma.. IMPRESSION: 1. No evidence of pulmonary embolism or acute thoracic process. 2. Cardiomegaly. 3. Hepatic steatosis. [facility], , 12/14/2024 12:39 PM
--- NOTE | 2024-12-14 13:48 | P.DS ---
Providers Date of admission: 12/13/24 15:48 Attending physician: Saniya Souza Consults: 12/11/24 11:51 Consult Physician Urgent Consulting Provider: [facility] Consult Reason/Comments: Chest pain Do you want consulting provider notified?: Yes [facility] Discharge diagnoses: Chest pain: Presented with chest pressure for 1 week intermittent, improved with rest EKG and troponin monitored serially, remained negative. Cardiology consulted-- status post cardiac catheterization 12/13 which showed relatively normal coronary arteries with mid LAD 10 to 20% stenosis, mildly elevated left-sided filling pressure. Cardiology recommended outpatient follow-up Continue aspirin, statin, beta-gerson, as needed sublingual nitroglycerin CT angio chest negative for PE or dissection or any acute process, showed cardiomegaly. Hyperlipidemia: Continue Lipitor Prediabetes: HbA1c 6.0 Recommend dietary modifications and exercise. PCP to follow. Interval History: 59-year-old female with no significant past medical history, reported history of depression anxiety who presented to ER with a complaint of chest discomfort for 1 week. Patient stated that she recently went to [place], it was a 6 to 7-hour drive each way, they took stop in between, since returning from [place] patient was having chest discomfort on and off and also shortness of breath worse with exertion. Patient stated that the pressure-like feeling was intermittent, was worse with exertion, improves with rest. Patient denied any fever, chills, sore throat, productive cough, lower extremity swelling, palpitations, nausea vomiting diarrhea constipation abdominal pain dysuria urgency frequency weakness or numbness of the extremities. Patient is afebrile, heart rate 76, respiratory rate 18, blood pressure 142/69, saturating 96% on room air. WBC 10.3, hemoglobin 12.2, platelet 269. INR 0.9 D-dimer 0.36. CMP was unremarkable. Troponin negative X2. Chest x-ray negative for acute process EKG showed sinus rhythm, no acute ST-T wave changes. TWI in V2. 12/12--- patient was seen and examined today. Patient continued complain of chest pressure with exertion relieved with rest. Troponin remained negative. Will continue monitor, continue aspirin, statin, as needed sublingual nitroglycerin. Vital stable. Troponin remained negative x 3. LDL 141. HbA1c 6.0. 12/13--patient was seen and examined today. Vital stable. Patient continues complain of chest pressure and shortness of breath with exertion. Cardiology following, plan for cardiac catheterization status post cardiac catheterization 12/13 which showed relatively normal coronary arteries with mid LAD 10 to 20% stenosis, mildly elevated left-sided filling pressure. 12/14--patient was seen and examined today. Symptoms were improving. Card catheterization yesterday showed relatively normal coronary arteries. Cardiology recommended aggressive risk factor modification and outpatient follow-up. Patient continued on aspirin, statin, beta-gerson, as needed sublingual nitroglycerin. CT angio chest was done which was negative for acute process, showed cardiomegaly. Please refer to med rec and assessment plan for further details Follow-up with PCP in 1 week Follow-up with cardiology outpatient. PHYSICAL EXAMINATION: GENERAL: The patient is A&O x3, NAD HEENT: EOMI, Sclerae anicteric, Moist Mucous membranes Neck: Supple, Non tender, No JVD PULMONARY: Equal breath souds B/L, No wheezing, No crackles. CARDIOVASCULAR: S1, S2 present. No murmurs, rubs, or gallops. ABDOMEN: Soft, nontender, nondistended, normoactive bowel sounds. No guarding or rebound tenderness. MUSCULOSKELETAL: No edema, No cyanosis. No clubbing. Normal ROM. Intact peripheral pulses. NEUROLOGICAL: CN 2-12 grossly intact. No FND Skin: No Rash Dictation was produced using [employer] dictation software. please excuse any grammatical, word or spelling errors. Patient Condition at Discharge: Fair Plan - Discharge Summary New Discharge Prescriptions: New Aspirin EC [Ecotrin Low Dose] 81 mg PO DAILY #30 tab Atorvastatin [Lipitor] 40 mg PO HS #30 tab Nitroglycerin Sl Tabs [Nitrostat] 0.4 mg SUBLINGUAL Q5M PRN #14 tab PRN Reason: Chest Pain Continue Sertraline [Zoloft] 150 mg PO HS Clonazepam Odt 0.5 mg PO TID PRN PRN Reason: Anxiety clonazePAM [KlonoPIN ODT] 0.25 mg PO BID PRN PRN Reason: Anxiety Metoprolol Succinate (ER) [Toprol XL] 25 mg PO HS Discharge Medication List Clonazepam Odt 0.5 mg PO TID PRN 12/11/24 [History] Metoprolol Succinate (ER) [Toprol XL] 25 mg PO HS 12/11/24 [History] Sertraline [Zoloft] 150 mg PO HS 12/11/24 [History] clonazePAM [KlonoPIN ODT] 0.25 mg PO BID PRN 12/11/24 [History] Aspirin EC [Ecotrin Low Dose] 81 mg PO DAILY #30 tab 12/14/24 [Rx] Atorvastatin [Lipitor] 40 mg PO HS #30 tab 12/14/24 [Rx] Nitroglycerin Sl Tabs [Nitrostat] 0.4 mg SUBLINGUAL Q5M PRN #14 tab 12/14/24 [Rx] Follow up Appointment(s)/Referral(s): Davonte Ott DO [STAFF PHYSICIAN] - 1 Week Vannesa Rocha DO [Primary Care Provider] - 1-2 days Discharge Disposition: HOME SELF-CARE
== END 2024-12-14 15:45 | disposition home or self-care (01) | DRG 287 ==
LOC: EC 08:22 → 6NMEDSUR 11:52 → OBSVTOIN 12-13 15:48
PROVIDERS: ADMIT Hospitalist; ATTEND Hospitalist
PROC: 4A023N7 Measurement of Cardiac Sampling and Pressure, Left Heart, Percutaneous Approach (ICD-10-PCS; principal; 2024-12-13 07:30)
PROC: B2111ZZ Fluoroscopy of Multiple Coronary Arteries using Low Osmolar Contrast (ICD-10-PCS; principal; 2024-12-13 07:30)
DX: R07.9 Chest pain, unspecified (principal); Z68.44 Body mass index [BMI] 60.0-69.9, adult; I10 Essential (primary) hypertension; F32.A Depression, unspecified; I25.10 Atherosclerotic heart disease of native coronary artery without angina pectoris; E66.9 Obesity, unspecified; E78.00 Pure hypercholesterolemia, unspecified; F41.9 Anxiety disorder, unspecified; M17.10 Unilateral primary osteoarthritis, unspecified knee; R73.03 Prediabetes; Z79.899 Other long term (current) drug therapy; Z88.1 Allergy status to other antibiotic agents
CPT/HCPCS: 36415; 71046; 71275; 80048; 80053; 80061; 83036; 83735; 84484; 85025; 85379; 85610; 85730; 93005; 93306; 93458; 94760; 96361; 96365; 96366; 99285

== ENCOUNTER 2025-01-14 15:52 | Emergency (ER) | payer MEDICARE ==
[2025-01-14 16:04] VITALS: PULSE 86; RESP 18; TEMP 98.2
--- NOTE | 2025-01-14 16:34 | ED ---
Arrhythmia/Palpitations HPI - General Chief Complaint: Arrhythmia/Palpitations Stated Complaint: allergic reaction Time Seen by Provider: 01/14/25 16:07 Source: patient, RN notes reviewed Mode of arrival: wheelchair - History of Present Illness MD Complaint: palpitations Onset/Timin -: hour(s) Associated Symptoms: chest pain, near-syncope - Related Data Home Medications Medication Instructions Recorded Confirmed Clonazepam Odt 0.5 mg PO TID PRN 12/11/24 12/11/24 Metoprolol Succinate (ER) [Toprol 25 mg PO HS 12/11/24 12/11/24 XL] Sertraline [Zoloft] 150 mg PO HS 12/11/24 12/11/24 clonazePAM [KlonoPIN ODT] 0.25 mg PO BID PRN 12/11/24 12/11/24 Previous Rx's Medication Instructions Recorded Aspirin EC [Ecotrin Low Dose] 81 mg PO DAILY #30 tab 12/14/24 Atorvastatin [Lipitor] 40 mg PO HS #30 tab 12/14/24 Nitroglycerin Sl Tabs [Nitrostat] 0.4 mg SUBLINGUAL Q5M PRN #14 tab 12/14/24 Allergies Allergy/AdvReac Type Severity Reaction Status Date / Time cefaclor [From Ceclor] Allergy Rash/Hives Verified 01/14/25 16:04 Penicillins AdvReac Nausea Verified 01/14/25 16:04 Review of Systems ROS Statement: Those systems with pertinent positive or pertinent negative responses have been documented in the HPI. ROS Other: All systems not noted in ROS Statement are negative. Past Medical History Past Medical History: Osteoarthritis (OA) Additional Past Medical History / Comment(s): anxiety, depression, gel shots in knee (OA) History of Any Multi-Drug Resistant Organisms: None Reported Past Surgical History: Cholecystectomy Past Psychological History: Anxiety Smoking Status: Never smoker Past Alcohol Use History: None Reported Past Drug Use History: None Reported General Exam General appearance: alert, in no apparent distress Head exam: Present: atraumatic, normocephalic, normal inspection Eye exam: Present: normal appearance, PERRL, EOMI. Absent: scleral icterus, conjunctival injection, periorbital swelling ENT exam: Present: normal exam, mucous membranes moist Neck exam: Present: normal inspection. Absent: tenderness, meningismus, lymphadenopathy Respiratory exam: Present: normal lung sounds bilaterally. Absent: respiratory distress, wheezes, rales, rhonchi, stridor, accessory muscle use, decreased breath sounds, prolonged expiratory Cardiovascular Exam: Present: regular rate, normal rhythm, normal heart sounds. Absent: systolic murmur, diastolic murmur, rubs, gallop, clicks GI/Abdominal exam: Present: soft, tenderness (Positive LUQ tenderness without gu arding), normal bowel sounds. Absent: distended, guarding, rebound, rigid Extremities exam: Present: full ROM, normal capillary refill, pedal edema (Positive BLE edema -patient states this is normal). Absent: tenderness, joint swelling, calf tenderness Back exam: Present: normal inspection Neurological exam: Present: alert, oriented X3, CN II-XII intact Psychiatric exam: Present: normal affect, normal mood Skin exam: Present: warm, dry, intact, normal color. Absent: rash Course Vital Signs 01/14/25 15:56 Temperature 98.2 F Pulse Rate 86 Respiratory 18 Rate Blood Pressure 153/95 O2 Sat by Pulse 97 Oximetry Medical Decision Making - Medical Decision Making Was pt. sent in by a medical professional or institution (, PA, AMBULANCE ASSISTANT, urgent care, hospital, or care home...) When possible be specific @ -[No] Did you speak to anyone other than the patient for history (EMS, parent, family, police, friend...)? What history was obtained from this source @ -[No] Did you review nursing and triage notes (agree or disagree)? Why? @ -[I reviewed and agree with nursing and triage notes] Were old charts reviewed (outside hosp., previous admission, EMS record, old EKG, old radiological studies, urgent care reports/EKG's, care home records)? Report findings @ -[No old charts were reviewed] Differential Diagnosis (chest pain, altered mental status, abdominal pain women, abdominal pain men, vaginal bleeding, weakness, fever, dyspnea, syncope, hea dache, dizziness, GI bleed, back pain, seizure, CVA, palpatations, mental health, musculoskeletal)? @ -Differential Palpitations Ventricular arrhythmias, atrial arrhythmias, myocardial infarction, anemia, thyrotoxicosis, electrolyte imbalance, hypokalemia, pulmonary embolism, pulmonary disease, drugs, alcohol, anxiety, stress.... This is not meant to be an all-inclusive list. EKG interpreted by me (3pts min.). @ -Sinus rhythm with LAD. New T wave inversion in V3, biphasic T wave in V4. Otherwise no ST deviation. Ventricular rate 80 bpm, DC 130 ms, QRS duration 89 ms, QTc 404 ms. X-rays interpreted by me (1pt min.). @ -[None done] CT interpreted by me (1pt min.). @ -[None done] U/S interpreted by me (1pt. min.). @ -[None done] What testing was considered but not performed or refused? (CT, X-rays, U/S, labs)? Why? @ -[None] What meds were considered but not given or refused? Why? @ -[None] Did you discuss the management of the patient with other professionals (professionals i.e. , PA, AMBULANCE ASSISTANT, lab, RT, psych nurse, social media senior associate, medical insurance clerk, teacher, loan workout officer, bilingual patient support caseworker)? Give summary @ -[No] Was smoking cessation discussed for >3mins.? @ -[No] Was critical care preformed (if so, how long)? @ -[No] Were there social determinants of health that impacted care today? How? (Toshia elessness, low income, unemployed, alcoholism, drug addiction, transportation, low edu. Level, literacy, decrease access to med. care, care home, rehab)? @ -[No] Was there de-escalation of care discussed even if they declined (Discuss DNR or withdrawal of care, Hospice)? DNR status @ -[No] What co-morbidities impacted this encounter? (DM, HTN, Smoking, COPD, CAD, Cancer, CVA, ARF, Chemo, Hep., AIDS, mental health diagnosis, sleep apnea, morbid obesity)? @ -[None] Was patient admitted / discharged? Hospital course, mention meds given and route, prescriptions, significant lab abnormalities, going to OR and other pertinent info. @ -[hospital course] Undiagnosed new problem with uncertain prognosis? @ -[No] Drug Therapy requiring intensive monitoring for toxicity (Heparin, Nitro, Insulin, Cardizem)? @ -[No] Were any procedures done? @ -[No] Diagnosis/symptom? @ -[default] Acute, or Chronic, or Acute on Chronic? @ -Acute Uncomplicated (without systemic symptoms) or Complicated (systemic symptoms)? @ -Complicated Side effects of treatment? @ -[No] Exacerbation, Progression, or Severe Exacerbation? @ -[No] Poses a threat to life or bodily function? How? (Chest pain, USA, OH, pneumonia, PE, COPD, DKA, ARF, appy, cholecystitis, CVA, Diverticulitis, Homicidal, Suicidal, threat to staff... and all critical care pts) @ -[No] - Lab Data Result diagrams: 01/14/25 17:00 01/14/25 17:00 Lab Results 01/14/25 01/14/25 01/14/25 Range/Units 17:00 17:00 17:00 WBC 12.2 H (3.8-10.6) k/uL RBC 4.61 (3.80-5.40) m/uL Hgb 12.2 (11.4-16.0) gm/dL Hct 38.3 (34.0-46.0) % MCV 83.1 (80.0-100.0) fL MCH 26.5 (25.0-35.0) pg MCHC 31.9 (31.0-37.0) g/dL RDW 15.1 (11.5-15.5) % Plt Count 286 (150-450) k/uL MPV 8.4 Neutrophils % 85 % Lymphocytes % 10 % Monocytes % 2 % Eosinophils % 2 % Basophils % 1 % Neutrophils # 10.4 H (1.3-7.7) k/uL Lymphocytes # 1.2 (1.0-4.8) k/uL Monocytes # 0.3 (0-1.0) k/uL Eosinophils # 0.3 (0-0.7) k/uL Basophils # 0.1 (0-0.2) k/uL PT 10.6 (10.0-12.5) sec INR 1.0 (<1.2) APTT 23.1 (22.0-30.0) sec Sodium 136 L (137-145) mmol/L Potassium 4.1 (3.5-5.1) mmol/L Chloride 101 (98-107) mmol/L Carbon Dioxide 24 (22-30) mmol/L Anion Gap 11 mmol/L BUN 13 (7-17) mg/dL Creatinine 0.61 (0.52-1.04) mg/dL Est GFR (CKD-EPI)AfAm >90 (>60 ml/min/1.73 sqM) Est GFR (CKD-EPI)NonAf >90 (>60 ml/min/1.73 sqM) Glucose 135 H (74-99) mg/dL Calcium 9.2 (8.4-10.2) mg/dL Magnesium 1.9 (1.6-2.3) mg/dL Total Bilirubin 0.7 (0.2-1.3) mg/dL AST 28 (14-36) U/L ALT 23 (4-34) U/L Alkaline Phosphatase 123 (38-126) U/L Troponin I (0.000-0.034) ng/mL Total Protein 7.9 (6.3-8.2) g/dL Albumin 4.5 (3.5-5.0) g/dL 01/14/25 Range/Units 17:00 WBC (3.8-10.6) k/uL RBC (3.80-5.40) m/uL Hgb (11.4-16.0) gm/dL Hct (34.0-46.0) % MCV (80.0-100.0) fL MCH (25.0-35.0) pg MCHC (31.0-37.0) g/dL RDW (11.5-15.5) % Plt Count (150-450) k/uL MPV Neutrophils % % Lymphocytes % % Monocytes % % Eosinophils % % Basophils % % Neutrophils # (1.3-7.7) k/uL Lymphocytes # (1.0-4.8) k/uL Monocytes # (0-1.0) k/uL Eosinophils # (0-0.7) k/uL Basophils # (0-0.2) k/uL PT (10.0-12.5) sec INR (<1.2) APTT (22.0-30.0) sec Sodium (137-145) mmol/L Potassium (3.5-5.1) mmol/L Chloride (98-107) mmol/L Carbon Dioxide (22-30) mmol/L Anion Gap mmol/L BUN (7-17) mg/dL Creatinine (0.52-1.04) mg/dL Est GFR (CKD-EPI)AfAm (>60 ml/min/1.73 sqM) Est GFR (CKD-EPI)NonAf (>60 ml/min/1.73 sqM) Glucose (74-99) mg/dL Calcium (8.4-10.2) mg/dL Magnesium (1.6-2.3) mg/dL Total Bilirubin (0.2-1.3) mg/dL AST (14-36) U/L ALT (4-34) U/L Alkaline Phosphatase (38-126) U/L Troponin I <0.012 (0.000-0.034) ng/mL Total Protein (6.3-8.2) g/dL Albumin (3.5-5.0) g/dL Disposition Clinical Impression: Adverse effect of adrenal cortical steroids, Palpitations Disposition: HOME SELF-CARE Condition: Good Instructions (If sedation given, give patient instructions): Heart Palpitations (ED) Additional Instructions: Follow-up with PCP in the next 24-48 hours. Is patient prescribed a controlled substance at d/c from ED?: No Referrals: Vannesa Rocha DO [Primary Care Provider] - 1-2 days Time of Disposition: 18:05
[2025-01-14 17:15] LABS: Basophils # (A) 0.1 k/uL (0-0.2); Basophils % (A) 1 %; Eosinophils # (A) 0.3 k/uL (0-0.7); Eosinophils % (A) 2 %; HCT 38.3 % (34.0-46.0); HGB 12.2 gm/dL (11.4-16.0); Lymphocytes # (A) 1.2 k/uL (1.0-4.8); Lymphocytes % (A) 10 %; MCH 26.5 pg (25.0-35.0); MCHC 31.9 g/dL (31.0-37.0); MCV 83.1 fL (80.0-100.0); Mean Platelet Volume 8.4; Monocytes # (A) 0.3 k/uL (0-1.0); Monocytes % (A) 2 %; Neutrophils # (A) 10.4 k/uL (1.3-7.7); Neutrophils % (A) 85 %; Platelet Count 286 k/uL (150-450); RBC 4.61 m/uL (3.80-5.40); RDW 15.1 % (11.5-15.5); WBC 12.2 k/uL (3.8-10.6)
[2025-01-14] MEDS: SODIUM CHLORIDE 0.9% 1,000 ML IV STA (17:20)
[2025-01-14 17:24] LABS: Partial Thromboplastin Time 23.1 sec (22.0-30.0); Prothrombin Time 10.6 sec (10.0-12.5)
[2025-01-14 17:30] LABS: ALT 23 U/L (4-34); AST 28 U/L (14-36); African American GFR (CKD) >90 (>60 ml/min/1.73 sqM); Albumin 4.5 g/dL (3.5-5.0); Alkaline Phosphatase 123 U/L (38-126); Anion Gap 11 mmol/L; Blood Urea Nitrogen 13 mg/dL (7-17); Calcium 9.2 mg/dL (8.4-10.2); Carbon Dioxide 24 mmol/L (22-30); Chloride 101 mmol/L (98-107); Glucose 135 mg/dL (74-99); Magnesium 1.9 mg/dL (1.6-2.3); Non-African American GFR(CKD) >90 (>60 ml/min/1.73 sqM); Potassium 4.1 mmol/L (3.5-5.1); Sodium 136 mmol/L (137-145); Total Bilirubin 0.7 mg/dL (0.2-1.3); Total Protein 7.9 g/dL (6.3-8.2)
[2025-01-14 18:34] VITALS: BP 159/72
== END 2025-01-14 19:01 | disposition home or self-care (01) ==
LOC: EC 15:52
DX: R00.2 Palpitations (principal); T38.0X5A Adverse effect of glucocorticoids and synthetic analogues, initial encounter; Z88.0 Allergy status to penicillin; Z88.1 Allergy status to other antibiotic agents
CPT/HCPCS: 36415; 80053; 83735; 84484; 85025; 85610; 85730; 93005; 96360; 99285